=== PATIENT | male | born 1965 | race Caucasian/White ===

== ENCOUNTER 2018-03-22 18:55 | Emergency (ER) | END 2018-03-22 23:40 | disposition home or self-care (01) ==

== ENCOUNTER 2018-04-17 02:33 | Emergency (ER) | END 2018-04-17 11:36 | disposition home or self-care (01) ==

== ENCOUNTER 2018-05-03 06:01 | Emergency (ER) | END 2018-05-03 07:10 | disposition home or self-care (01) ==

== ENCOUNTER 2018-05-11 19:20 | Emergency (ER) | END 2018-05-11 20:46 | disposition left against medical advice (07) ==

== ENCOUNTER 2018-05-25 21:09 | Emergency (ER) | payer SELFPAY ==
[~2018-05-25] VITALS: Ht 175.3 cm; Wt 59.1 kg
[~2018-05-25 21:09] MED LIST: CIPR500T4 PO; CYCL10TA7 PO; HYDR-3980 PO; HYDR2TAB36 PO; HYDR4TAB51 PO; METR500T PO; PHEN300C2 PO
[2018-05-25 21:12] VITALS: BP 130/86; PULSE 115; RESP 20; Ht 175.3 cm; Wt 59.1 kg
== END 2018-05-25 23:00 | disposition left against medical advice (07) ==
LOC: E/R 21:09
DX: Z53.21 Procedure and treatment not carried out due to patient leaving prior to being seen by health care provider (principal)

== ENCOUNTER 2018-06-21 12:36 | Emergency (ER) | payer SELFPAY ==
[~2018-06-21] VITALS: Ht 167.6 cm; Wt 74.0 kg
[2018-06-21 12:41] VITALS: BP 117/64; PULSE 107; RESP 20; Ht 167.6 cm; Wt 74.0 kg
== END 2018-06-21 14:16 | disposition left against medical advice (07) ==
LOC: FTE 12:36
DX: Z53.21 Procedure and treatment not carried out due to patient leaving prior to being seen by health care provider (principal)